=== PATIENT | female | born 1980 | race Caucasian/White ===

== ENCOUNTER → 2019-11-16 12:46 | Outpatient (CLI) | payer OTHER, SELFPAY ==
[2019-10-27 11:21] VITALS: BMI 31.3
--- NOTE | 2019-11-16 12:54 | BI_ITS ---
MAMMOGRAPHY - BILATERAL SCREENING REASON FOR EXAM: Female, 39 years old. Routine annual screening examination. PERTINENT HISTORY: Aunt with breast cancer. TECHNIQUE: Digital bilateral breast argenis (3D mammographic acquisition) in the CC and MLO projections. 2-D mediolateral oblique (MLO) and craniocaudad (CC) views of both breasts were obtained. CAD: Full Field Digital Mammography with Computer Added Detection was performed. COMPARISON: None. Baseline examination. FINDINGS: Breast Composition: The breasts are heterogeneously dense, which may obscure small masses. There are no dominant masses or suspicious calcifications. Benign appearing bilateral axillary lymph nodes. No other significant abnormalities are identified. BI/SCREEN MAMM (CAD) W/ARGENIS BILAT IMPRESSION: Negative screening mammogram. Yearly followup mammogram recommended. (A) ASSESSMENT CATEGORY: BIRADS Category 2: Benign. A letter regarding these results will be sent to the patient by the facility within 30 days. Approximately 10% of breast cancers are not detected by mammography. A normal mammogram should not delay biopsy of a clinically suspicious abnormality. [id number] Electronically Signed: Rhett Chairez, at 15:31 EST , Service support ,
--- NOTE | 2019-11-16 12:54 | US_ITS ---
STUDY: ULTRASOUND TRANSVAGINAL CLINICAL: Female, 39 years old. MENORRHAGIA TECHNIQUE: Transvaginal COMPARISON: None. FINDINGS: Normal uterine size measuring 8.2 x 1.8 x 3.8 cm in maximal craniocaudal dimension. There are no myometrial masses. Normal endometrial thickness measuring 10 mm. There are no endometrial masses, and there is no fluid in the endometrial cavity. Small endometrial calcification measures 2 mm. Normal uterine cervix. Normal right ovary, measuring 3.3 x 3.0 x 2.5 cm. There are multiple follicles without a dominant cyst. Normal left ovary, measuring 2.3 x 1.8 x 1.2 cm. There are multiple follicles without a dominant cyst. There is no free fluid in the pelvis. US/Pelvic (Non ) IMPRESSION: 1. No myometrial or endometrial masses demonstrated. 2. Punctate/2 mm endometrial calcification of doubtful significance. Electronically Signed: Miki Das MD ([place]) at 12:09 EST , Service support ,
--- NOTE | 2019-11-16 12:54 | US_ITS ---
STUDY: ULTRASOUND TRANSVAGINAL CLINICAL: Female, 39 years old. MENORRHAGIA TECHNIQUE: Transvaginal COMPARISON: None. FINDINGS: Normal uterine size measuring 8.2 x 1.8 x 3.8 cm in maximal craniocaudal dimension. There are no myometrial masses. Normal endometrial thickness measuring 10 mm. There are no endometrial masses, and there is no fluid in the endometrial cavity. Small endometrial calcification measures 2 mm. Normal uterine cervix. Normal right ovary, measuring 3.3 x 3.0 x 2.5 cm. There are multiple follicles without a dominant cyst. Normal left ovary, measuring 2.3 x 1.8 x 1.2 cm. There are multiple follicles without a dominant cyst. There is no free fluid in the pelvis. US/Transvaginal Non- IMPRESSION: 1. No myometrial or endometrial masses demonstrated. 2. Punctate/2 mm endometrial calcification of doubtful significance. Electronically Signed: Miki Das MD ([place]) at 12:09 EST , Service support ,
== END ==
PROVIDERS: Referring Provider Nurse Practitioner Women's Health; Visit Provider Nurse Practitioner Women's Health
DX: N92.0 Excessive and frequent menstruation with regular cycle (principal); Z12.31 Encounter for screening mammogram for malignant neoplasm of breast
CPT/HCPCS: 76830; 76856; 77063; 77067; 93976

== ENCOUNTER 2020-06-10 10:47 | Emergency (ER) | payer OTHER, SELFPAY ==
[2019-10-27 11:21] VITALS: BMI 31.3
[2020-06-10 10:47] VITALS: BP 151/105; PULSE 99; RESP 16; TEMP 36.6; O2SAT 95; BMI 31.3
--- NOTE | 2020-06-10 11:06 | ED.VIS.GEN ---
History of Present Illness Chief Complaint: General Illness Detail of Chief Complaint: back/neck pain Informant: Patient Onset: Yesterday - PM Context: Gradual Onset Timing: Waxes and wanes Quality: ache, spasms Location: upper back/neck, bilat Current Severity: Moderate Maximum Severity: Severe Worsened by: vomiting Relieved by: nothing Associated Symptoms: diffuse headache w/o thunderclap/sudden onset/LOC, n/v Narrative: Patient states she started having upper back and neck spasms with pain, which is a chronic common occurrence for her. Now they have developed a headache along with them, which has then made her very nauseated and she has been vomiting all morning, unable to take the muscle relaxer medication that usually helps the other symptoms. She denies any recent injury. She denies neurologic symptoms, fevers or chills, myalgias. Patient presents during the national coronavirus emergency declaration/pandemic. She denies any known contact with anyone infected with COVID-19. She denies traveling out of the immediate area recently. Past Medical History - Allergies and Home Meds Allergies/Adverse Reactions: Allergies clindamycin Allergy (Verified 06/10/20 10:47) Isabela Primary Care Physician: Care Physician,No Primary [Primary Care Provider] - Smoking Status: Never smoker Review of Systems General: Denies: Chills, Fever, Sweats Eyes: Denies: Visual changes - bilaterally, Diplopia ENT: Reports: Rhinorrhea, - - sinus pressure. Denies: Bilateral ear pain, Sore throat Cardiovascular: Denies: Chest pain, Palpitations Respiratory: Denies: Dyspnea, Cough, Dyspnea on exertion Gastrointestinal: Reports: Nausea, Vomiting. Denies: Abdominal pain, Diarrhea, Melena, Hematochezia Genitourinary: Denies: Dysuria, Hematuria, Frequency Musculoskeletal: Reports: Neck pain, Back pain. Denies: Extremity Pain Skin: Denies: Rash, Wounds Neurological: Reports: Headache. Denies: Weakness, Numbness Physical Exam Vital Signs/Narrative: Vital Signs Temp Pulse Resp BP Pulse Ox 06/10/20 10:47 97.8 F 99 16 151/105 H 95 Inital Vital Signs reviewed: Yes General: Well nourished, Well developed, No Acute Distress Head: Normocephalic, Atraumatic Eyes: Perrl, EOMI ENT: Moist mucous membranes, No rhinorrhea, TM's clear, Sinus tenderness - ethmoid and bilat maxillary. no nasal turbinate edema or purulent nasal discharge. Neck: Supple - bilat lower paraspinal c-sp / trapezius tenderness, no spinal tenderness, No lymphadenopathy, - - bilat lower paraspinal c-sp / trapezius tenderness Respiratory: No distress Abdomen: Soft, Nontender, Nondistended, Normal bowel sounds Back: Normal Inspection. Negative for: Spinal tenderness Extremities: Nontender, No edema Skin: Normal color, No rash Neurological: Alert, Oriented x3, Cranial nerves II-XII grossly intact, Normal Strength, Normal Sensation, Normal Gait Psychological: Normal affect, Normal Mood Diagnostic/Tx/Re-eval - Medical Decision Making Patient was treated with IV fluids, Reglan, Toradol, and an injection of Norflex. On reevaluation she feels much better. She is comfortable with discharge and following up as needed. I do not think she needs any emergent imaging today, nor do I feel on exam that she has bacterial sinusitis. Decongestants as needed for that, it may be contributing to her headaches though. ED Disposition - Plan for ED Patient: Disposition: Home or Assisted Living Diagnosis: Trapezius muscle spasm, Sinus congestion Instructions: ED Headache Sinus, ED Spasm Neck No Injury Referrals: Doctor,Your [STAFF PHYSICIAN] - As Needed
[2020-06-10] MEDS: Ketorolac 30 MG/ML Syringe IV (11:17)
[2020-06-10] MEDS: Orphenadrine 60 MG/2 ML Ampul IM (11:18)
[2020-06-10] MEDS: Metoclopramide 10 MG/2 ML Vial 5 MG IV (11:18)
== END 2020-06-10 12:33 | disposition home or self-care (01) ==
PROVIDERS: Emergency Provider Emergency Medicine
DX: M62.830 Muscle spasm of back (principal); R09.81 Nasal congestion
CPT/HCPCS: 96361; 96372; 96374; 96375; 99282; J7040; A4216

== ENCOUNTER → 2020-12-27 11:09 | Outpatient (CLI) | payer OTHER, SELFPAY ==
--- NOTE | 2020-12-27 11:12 | BI_ITS ---
MAMMOGRAPHY - BILATERAL SCREENING REASON FOR EXAM: Female, 40 years old. Routine annual screening examination. PERTINENT HISTORY: Aunt with breast cancer. TECHNIQUE: Digital bilateral breast argenis (3D mammographic acquisition) in the CC and MLO projections. 2-D mediolateral oblique (MLO) and craniocaudad (CC) views of both breasts were obtained. CAD: Full Field Digital Mammography with Computer Added Detection was performed. COMPARISON: Comparison is made with prior study dated 11/16/2019. FINDINGS: Breast Composition: The breasts are heterogeneously dense, which may obscure small masses. There are no dominant masses or suspicious calcifications. Stable benign-appearing bilateral axillary lymph nodes. No other significant abnormalities are identified. There has been no significant change since the prior study. BI/SCRN MAMM (CAD)W/ARGENIS BILAT IMPRESSION: Stable bilateral screening mammogram. Yearly follow-up mammogram recommended. (A) ASSESSMENT CATEGORY: BIRADS Category 2: Benign. A letter regarding these results will be sent to the patient by the facility within 30 days. Approximately 10% of breast cancers are not detected by mammography. A normal mammogram should not delay biopsy of a clinically suspicious abnormality. [id number] Electronically Signed: Rhett Chairez MD at 14:28 EST , Service support ,
== END ==
PROVIDERS: Referring Provider Nurse Practitioner Women's Health; Visit Provider Nurse Practitioner Women's Health
DX: Z12.31 Encounter for screening mammogram for malignant neoplasm of breast (principal)
CPT/HCPCS: 77063; 77067

== ENCOUNTER 2021-05-08 16:03 | Emergency (ER) | payer OTHER, SELFPAY ==
[2021-04-18 15:14] VITALS: BMI 32.6
[2021-05-08 16:04] VITALS: BP 154/107; PULSE 91; RESP 16; TEMP 36.7; O2SAT 98; BMI 34.3
[2021-05-08 16:27] LABS: Mucous, Urine 0 SEEN /hpf (<or=2+)
[2021-05-08 16:37] LABS: Color, Urine Amber (Yellow); Glucose, Dipstick Normal (Normal); Ketone-Dipstick 5 mg/dl (Negative); Leukocyte Esterase-Dipstick 100 /ul (Negative); Nitrite-Dipstick Negative (Negative); Occult Blood-Urine 250 /ul (Negative); Protein-Dipstick 30 mg/dl (Negative); Specific Gravity, Urine 1.025 (1.002-1.030); Urine Bilirubin Dipstick Negative (Negative); Urine Clarity Cloudy (Clear); Urine Urobilinogen 1 mg/dl (Normal)
[2021-05-08 16:47] LABS: Red Blood Cells-Urine > 100 SEEN /hpf (0-5)
[2021-05-08 16:48] LABS: Bacteria RARE /hpf (None Seen); Squamous Epithelial Cells - UA 0-5 SEEN /hpf (5-10); White Blood Cells 0-5 SEEN /hpf (0-5)
--- NOTE | 2021-05-08 17:08 | EDS_ITS ---
HPI HPI - Female History of Present Illness Chief Complaint: Flank Pain Narrative Narrative: 40-year-old female presenting with left flank pain. She states that initially started in the left lower flank and radiated around to the front. Now she feels more pressure in the front. She states he has urinary frequency and mild dysuria. She does not note hematuria. She is currently on her menstrual cycle as well. She does not believe she is . She states she also feels as if she needs to defecate. She did have a couple of episodes of vomiting. She states he vomited in the ED as well. Patient is not had a fever. [facility] Medical History Asthma Back pain Dysmenorrhea Headache, menstrual migraine History of pneumonia Preeclampsia Seasonal allergies Spinal headache Toxemia of Vitamin deficiency Home Medications albuterol sulfate 1 - 2 puff INHALATION Q4H PRN PRN #1 inhaler 11/27/16 [Rx Last Taken Unknown] norethindrone (contraceptive) 0.35 mg tablet 0.35 mg PO QDAY #84 tab 01/11/21 [Rx Last Taken Unknown] Allergy/generic PO 04/18/21 [History Last Taken Unknown] cholecalciferol (vitamin D3) 25 mcg (1,000 unit) capsule 25 mcg PO DAILY 04/18/21 [History Last Taken Unknown] sumatriptan succinate 25 mg tablet See Rx Instructions PO .COMPLEX #10 tab 04/30/21 [Rx Last Taken Unknown] ondansetron 8 mg PO Q8H PRN PRN #20 tab 05/08/21 [Rx Last Taken Unknown] oxycodone-acetaminophen [Percocet] 1 tab PO Q6H PRN 3 Days #12 tab 05/08/21 [Rx Last Taken Unknown] Allergy/AdvReac Type Severity Reaction Status Date / Time clindamycin Allergy Hives Verified 05/08/21 16:04 Family History Grandmother Lung disease Arthritis Father Diabetes Anxiety Hypertension Hyperlipemia Mother Parkinsons disease Anxiety Depression Hypertension Hyperlipemia Aunt Breast cancer Grandfather Cancer Brother Hypertension Surgical History H/O hernia repair H/O LEEP H/O oral surgery H/O: History of colposcopy L shoulder surgery Social History household members: family housing: [facility] number of children: 1 current occupational status: employed current occupation: coach driver history of recent travel: Yes sexually active: No Smoking Status: Never smoker alcohol intake: never substance use type: does not use well-balanced diet: about half the time caffeine: No what type of physical activity do you participate in: none seatbelt use: always do you feel safe at home: Yes ROS ROS ED Constitutional Constitutional ED: Denies chills, fever(s) or subjective Eyes Eyes: Denies change in vision ENT ENT ED: Denies rhinorrhea or sore throat Cardiovascular Cardiovascular: Denies chest pain or palpitations Respiratory/Chest Respiratory/Chest: Denies cough or dyspnea Gastrointestinal Gastrointestinal: Reports abdominal pain, constipation, nausea and vomiting Genitourinary Genitourinary ED: Reports dysuria and urinary frequency Musculoskeletal Musculoskeletal: Denies arthralgias or myalgias Integumentary Denies abscess or rash Neurologic Neurologic: Denies headache(s), paresthesias or weakness EXAM Physical Exam Const Vital Signs: 05/08/21 16:04 05/08/21 18:26 Temperature 98.0 F Temperature Source Temporal Pulse Rate 91 90 Respiratory Rate 16 18 Blood Pressure 154/107 H 136/87 H Blood Pressure Mean 122 103 Pulse Ox 98 100 Oxygen Delivery Method Room Air Room Air Positive well nourished General Appearance ED: NAD HEENT Reports moist mucous membranes Negative for trauma Eyes PERRL and EOMs intact bilaterally Resp normal respiratory effort and clear to auscultation bilaterally Cardio regular rate and regular rhythm GI GI Narrative: Tenderness to palpation left lower quadrant. No CVA tenderness on the left. Extremity normal to inspection General Extremety ED: Negative for edema General Extremity: Negative for edema Neuro oriented x3 Sensorium / Orientation: alert Psych mental status grossly normal Skin no rashes or lesions noted MDM MDM MDM Narrative Medical decision making narrative: Patient presenting with left flank pain. She does not have CVA tenderness but it sounds like she had posterior left flank pain previously. Urinalysis shows hematuria however patient is currently on her menstrual cycle. Serum is negative. Patient has no leukocytosis. H&H are stable. Creatinine is slightly bumped at 1.06 however this is not too significant. Her electrolytes are normal. CT of the abdomen pelvis with out IV contrast shows a left UVJ stone. Patient was treated with morphine, Zofran, Toradol in the ED and she does have some improvement in her pain. She is given oxycodone prior to discharge. She discharged home with Percocet and Zofran. She is given follow-up with Dr. Tucker. Patient given return precautions. She stable for discharge at this time. Impression 1. 3 mm UVJ stone 2. Left-sided hydronephrosis Lab Data Attestation: I reviewed the patient's lab results. Labs: Laboratory Results - last 24 hr 05/08/21 05/08/21 05/08/21 16:21 17:31 17:31 WBC 9.5 RBC 4.99 Hgb 13.7 Hct 41.9 MCV 84.0 MCH 27.5 MCHC 32.7 RDW Std Deviation 41.0 RDW Coeff of Jamilah 13.4 Plt Count 292 MPV 9.5 Immature Gran % (Auto) 0.300 Neut % (Auto) 75.0 H Lymph % (Auto) 15.2 L [place] % (Auto) 7.2 Eos % (Auto) 1.7 Baso % (Auto) 0.6 Absolute Neuts (auto) 7.2 Absolute Lymphs (auto) 1.45 Nucleated RBC % 0 Sodium Potassium Chloride Carbon Dioxide Anion Gap BUN Creatinine Estim Creat Clear Calc Est GFR (MDRD) Af Amer Est GFR (MDRD) Non-Af BUN/Creatinine Ratio Glucose Calcium Serum , Qual NEGATIVE Urine Color Joie Urine Clarity Cloudy Urine pH 5.0 Ur Specific [place] 1.025 Urine Protein 30 H Urine Glucose (UA) Normal Urine Ketones 5 H Urine Occult Blood 250 H Urine Nitrite Negative Urine Bilirubin Negative Urine Urobilinogen 1 H Ur Leukocyte Esterase 100 H Urine RBC > 100 SEEN Urine WBC 0-5 SEEN Ur Squamous Epith Cells 0-5 SEEN Urine Bacteria RARE Urine Mucus 0 SEEN 05/08/21 17:31 WBC RBC Hgb Hct MCV MCH MCHC RDW Std Deviation RDW Coeff of Jamilah Plt Count MPV Immature Gran % (Auto) Neut % (Auto) Lymph % (Auto) [place] % (Auto) Eos % (Auto) Baso % (Auto) Absolute Neuts (auto) Absolute Lymphs (auto) Nucleated RBC % Sodium 139 Potassium 3.6 Chloride 108 H Carbon Dioxide 26.0 Anion Gap 5 BUN 15 Creatinine 1.06 H Estim Creat Clear Calc 67.92 Est GFR (MDRD) Af Amer 73 Est GFR (MDRD) Non-Af 61 BUN/Creatinine Ratio 14.2 Glucose 103 Calcium 8.7 Serum , Qual Urine Color Urine Clarity Urine pH Ur Specific [place] Urine Protein Urine Glucose (UA) Urine Ketones Urine Occult Blood Urine Nitrite Urine Bilirubin Urine Urobilinogen Ur Leukocyte Esterase Urine RBC Urine WBC Ur Squamous Epith Cells Urine Bacteria Urine Mucus Radiography Diagnostic Testing: Radiology Impression Abdomen/Pelvis CT 05/08/21 18:25 IMPRESSION: Obstructing 3 mm stone in the left ureterovesical junction with associated mild left hydroureteronephrosis. Electronically Signed: Thee Ge MD at 18:58 EDT Tel , Service support , Discharge Plan Triage Chief Complaint: Flank Pain Other Complaint: Abd Pain ED Provider: Efrain Winters Dx/Rx/DC Orders Instructions: ED Kidney Stone w/ Colic Prescriptions: New ondansetron 4 mg tablet,disintegrating 8 mg PO Q8H PRN PRN (Reason: Nausea) Qty: 20 RF: 0 oxycodone-acetaminophen [Percocet] 5-325 mg tablet 1 tab PO Q6H PRN (Reason: pain) 3 Days Qty: 12 RF: 0 No Action norethindrone (contraceptive) [Cristina] 0.35 mg tablet 0.35 mg PO QDAY Qty: 84 RF: 4 cholecalciferol (vitamin D3) 25 mcg (1,000 unit) capsule 25 mcg PO DAILY RF: 0 Allergy/generic PO RF: 0 albuterol sulfate 1 INHALER inhaler 1 - 2 puff INHALATION Q4H PRN PRN (Reason: Wheezing) Qty: 1 RF: 0 sumatriptan succinate [Imitrex] 25 mg tablet See Rx Instructions PO .COMPLEX Qty: 10 RF: 0 Primary Care Provider: Nick Martin Referrals: Ruth Santana MD [STAFF PHYSICIAN] - As soon as possible Nick Martin MD [Primary Care Provider] - Disposition Disposition: Home, Self Care
[2021-05-08 17:59] LABS: Absolute Lymphocyte Count 1.45 X10^3/uL (0.83-4.51); Absolute Neutrophil Count 7.2 X10^3/uL (2.0-7.7); Basophil# 0.06 X10^3/uL; Basophil% 0.6 % (0-1); Eosinophil# 0.16 X10^3/uL; Eosinophils% 1.7 % (0-5); Hematocrit 41.9 % (37-47); Hemoglobin 13.7 g/dL (12.0-15.0); Lymphocyte # 1.45 X10^3/ul (0.83-4.51); Lymphocyte % 15.2 % (19-41); Mean Corp Hgb Conc 32.7 g/dL (32-36); Mean Corpuscular Hgb 27.5 pg (27.0-32.0); Mean Platelet Vol. 9.5 fl (6.2-12.0); Monocyte# 0.69 X10^3/uL; Monocyte% 7.2 % (0-10); NRBC Flagged by Analyzer 0 % (0-5); Neutrophil # 7.15 X10^3/uL (2.7-7.7); Platelet Count 292 K/mm3 (150-450); RBC Distribution Width CV 13.4 % (11.6-14.6); Red Blood Count 4.99 M/mm3 (4.2-5.4); White Blood Count 9.5 K/mm3 (4.4-11.0)
[2021-05-08 18:03] LABS: Anion Gap 5 (5-15); BUN 15 mg/dL (7-18); BUN/Creat Ratio 14.2 RATIO (10-20); Calcium,Total 8.7 mg/dL (8.5-10.1); Chloride 108 mmol/L (98-107); Creatinine, Serum 1.06 mg/dL (0.55-1.02); EST Glomerular Filtration Rate 61 mL/min (>60); Est Glom Filt Rate - Afr Amer 73 mL/min (>60); Estimated Creatinine Clearance 67.92 ml/min; Glucose 103 mg/dL (74-106); Potassium 3.6 mmol/L (3.5-5.1); Sodium Level 139 mmol/L (136-145)
[2021-05-08 18:25] LABS: Internal QC Validated? YES +Cl - CLEAR BKGD; Pregnancy, Serum, hCG Quali. NEGATIVE Negative
--- NOTE | 2021-05-08 18:25 | CT_ITS ---
INDICATION: flank pain EXAMINATION: CT Abdomen And Pelvis W/O Contrast Injection TECHNIQUE: Helically acquired images were obtained of the abdomen and pelvis without the use of IV contrast. A radiation dose optimization technique was used for this scan. Oral contrast: None. COMPARISON: None FINDINGS: Evaluation of the solid organs and vascular structures is limited without intravenous contrast. Visualized lung bases: Unremarkable Liver: Unremarkable Gallbladder: Contracted. Spleen: Unremarkable Pancreas: Unremarkable Adrenal Glands: Unremarkable Kidneys: Obstructing 3 mm stone in the left ureterovesical junction with associated mild left hydroureteronephrosis. Vasculature: Unremarkable GI Tract: Unremarkable Lymphadenopathy: None Peritoneum: No ascites. Bladder: Unremarkable Reproductive organs: Unremarkable Bones/Soft tissues: Mild scattered degenerative changes of the visualized spine. CT/Abdomen/Pelvis without Cont IMPRESSION: Obstructing 3 mm stone in the left ureterovesical junction with associated mild left hydroureteronephrosis. Electronically Signed: Thee Ge MD at 18:58 EDT Tel , Service support ,
[2021-05-08 18:26] VITALS: BP 136/87; PULSE 90; RESP 18; O2SAT 100
[2021-05-08] MEDS: Morphine 4 MG/ML Syringe IV (19:16)
[2021-05-08] MEDS: Ondansetron 4 MG/2 ML Vial IV ×2 (19:22→21:03)
[2021-05-08] MEDS: oxyCODONE 5 MG Tablet PO (21:03)
[2021-05-08 21:20] VITALS: RESP 14
== END 2021-05-08 21:22 | disposition home or self-care (01) ==
PROVIDERS: Emergency Provider Student in an Organized Health Care Education/Training Program; PCP Internal Medicine
DX: N13.2 Hydronephrosis with renal and ureteral calculous obstruction (principal); J45.909 Unspecified asthma, uncomplicated; Z79.51 Long term (current) use of inhaled steroids
CPT/HCPCS: 74176; 80048; 81001; 84703; 85025; 96365; 96366; 96375; 96376; 99284; J7040; J7050; A4216; J2405

== ENCOUNTER → 2023-05-27 | Outpatient (CLI) | payer OTHER, SELFPAY ==
[2023-05-27 12:01] LABS: Absolute Lymphocyte Count 1.69 X10^3/uL (0.83-4.51); Absolute Neutrophil Count 5.4 X10^3/uL (2.0-7.7); Basophil# 0.07 X10^3/uL; Basophil% 0.9 % (0-1); Eosinophil# 0.16 X10^3/uL; Eosinophils% 2.1 % (0-5); Hematocrit 37.7 % (37-47); Hemoglobin 12.3 g/dL (12.0-15.0); Lymphocyte # 1.69 X10^3/ul (0.83-4.51); Lymphocyte % 21.7 % (19-41); Mean Corp Hgb Conc 32.6 g/dL (32-36); Mean Corpuscular Hgb 28.7 pg (27.0-32.0); Mean Corpuscular Volume 88.1 fL (81-99); Mean Platelet Vol. 9.6 fl (6.2-12.0); Monocyte# 0.48 X10^3/uL; Monocyte% 6.2 % (0-10); NRBC Flagged by Analyzer 0 % (0-5); Neutrophil # 5.35 X10^3/uL (2.7-7.7); Neutrophil % 68.6 % (47-70); Platelet Count 261 K/mm3 (150-450); RBC Distribution Width CV 13.1 % (11.6-14.6); RBC Distribution Width SD 41.5 fl (35.1-43.9); Red Blood Count 4.28 M/mm3 (4.2-5.4); White Blood Count 7.8 K/mm3 (4.4-11.0)
[2023-05-27 12:17] LABS: Thyroid Stim Hormone (TSH) 1.37 uIU/mL (0.358-3.74)
[2023-05-30 16:09] LABS: HPV APTIMA, High Risk Negative (Negative)
== END | disposition home or self-care (01) ==
PROVIDERS: Referring Provider Obstetrics & Gynecology; Visit Provider Obstetrics & Gynecology
DX: N93.9 Abnormal uterine and vaginal bleeding, unspecified (principal); Z12.4 Encounter for screening for malignant neoplasm of cervix
CPT/HCPCS: 36415; 84443; 85025; 87624; 88175; G0145

== ENCOUNTER → 2023-06-10 | Outpatient (CLI) | payer OTHER, SELFPAY ==
--- NOTE | 2023-06-10 12:31 | BI_ITS ---
MAMMOGRAPHY - BILATERAL SCREENING REASON FOR EXAM: Female, 42 years old. Routine annual screening examination. PERTINENT HISTORY: Aunt with breast cancer. TECHNIQUE: Digital bilateral breast argenis (3D mammographic acquisition) in the CC and MLO projections. 2-D mediolateral oblique (MLO) and craniocaudad (CC) views of both breasts were obtained. CAD: Full Field Digital Mammography with Computer Added Detection was performed. COMPARISON: Comparison is made with prior study of December 27, 2020 and November 16, 2019. FINDINGS: Breast Composition: The breasts are heterogeneously dense, which may obscure small masses. There are no dominant masses or suspicious calcifications. Stable benign appearing bilateral axillary lymph nodes. No other significant abnormalities are identified. There has been no significant change since the prior study. BI/SCRN MAMM (CAD)W/ARGENIS BILAT IMPRESSION: Stable bilateral screening mammogram. Yearly follow-up mammogram recommended. (A) ASSESSMENT CATEGORY: BIRADS Category 2: Benign. A letter regarding these results will be sent to the patient by the facility within 30 days. Approximately 10% of breast cancers are not detected by mammography. A normal mammogram should not delay biopsy of a clinically suspicious abnormality. [id number] Electronically Signed: Rhett Chairez MD at 13:58 EDT ,
--- NOTE | 2023-06-10 12:31 | US_ITS ---
STUDY: ULTRASOUND OF THE FEMALE PELVIS - COMPLETE REASON FOR EXAM: Female, 42 years old. AUB LMP: TECHNIQUE: Transabdominal and Transvaginal TECHNICAL QUALITY: Adequate. COMPARISON: CT scan 05/08/2021. FINDINGS: The uterus is anteverted and is in a midline position. The uterus measures 10.1 x 5.7 x 5.4 cm. There is a Nabothian cyst of the cervix. The endometrium measures 5 mm in thickness, and is hyperechoic. There is no demonstrated endometrial mass. There is no demonstrated myometrial mass. I.U.D. - The patient does not have an I.U.D. The right ovary is visualized. The right ovary measures 2.6 x 1.9 x 1.0 cm. There is no right ovarian cyst or ovarian mass. There is no visualized right adnexal mass or complex lesion. There is normal arterial and normal venous vascularity. The left ovary is visualized. The left ovary measures 2.3 x 1.8 x 1.3 cm. There is no left ovarian cyst or ovarian mass. There is no visualized left adnexal mass or complex lesion. There is normal arterial and normal venous vascularity. There is no fluid in the cul-de-sac. The pre void volume of the bladder was 414 ml. US/Pelvic (Non ) IMPRESSION: No definite acute or significant abnormality seen. Electronically Signed: Quincy Penny MD at 19:01 EDT ,
== END | disposition home or self-care (01) ==
PROVIDERS: Referring Provider Obstetrics & Gynecology; Visit Provider Obstetrics & Gynecology
DX: Z12.31 Encounter for screening mammogram for malignant neoplasm of breast (principal); Z80.3 Family history of malignant neoplasm of breast; N93.9 Abnormal uterine and vaginal bleeding, unspecified
CPT/HCPCS: 76830; 76856; 77063; 77067

== ENCOUNTER → 2024-02-16 | Outpatient (CLI) | payer OTHER, SELFPAY ==
[2024-02-16 10:36] LABS: Hematocrit 40.5 % (37-47); Hemoglobin 13.8 g/dL (12.0-15.0); Mean Corp Hgb Conc 34.1 g/dL (32-36); Mean Corpuscular Volume 85.1 fL (81-99); Mean Platelet Vol. 9.5 fl (6.2-12.0); Platelet Count 254 K/mm3 (150-450); RBC Distribution Width CV 13.2 % (11.6-14.6); RBC Distribution Width SD 40.8 fl (35.1-43.9); Red Blood Count 4.76 M/mm3 (4.2-5.4); White Blood Count 7.8 K/mm3 (4.4-11.0)
[2024-02-16 10:42] LABS: Magnesium 2.2 mg/dL (1.6-2.6)
== END | disposition home or self-care (01) ==
PROVIDERS: Anesthesiology; Referring Provider Obstetrics & Gynecology; Visit Provider Obstetrics & Gynecology
DX: Z01.818 Encounter for other preprocedural examination (principal)
CPT/HCPCS: 36415; 83735; 85027; 86850; 86900; 86901

== ENCOUNTER 2024-02-24 06:00 | Day surgery (SDC) | payer OTHER, SELFPAY ==
[2024-02-24] VITALS (15 sets, daily range): BP systolic 111–147; BP diastolic 67–93; PULSE 78–100; RESP 12–16; TEMP 36.2–36.9; O2SAT 93–100; BMI 33.3
--- NOTE | 2024-02-24 05:59 | PCM.HP.BLA ---
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 Is patient in pain?: No Allergies clindamycin Allergy (Verified 02/16/24 09:21) Hives Medications albuterol sulfate 90 mcg/actuation aerosol inhaler 1 - 2 puff inhalation Q4H PRN PRN Wheezing ##1 11/27/16 [Rx Confirmed 02/16/24] cholecalciferol (vitamin D3) 25 mcg (1,000 unit) capsule 25 mcg PO DAILY 04/18/21 [History Confirmed 02/16/24] ferrous sulfate 325 mg (65 mg iron) tablet 325 mg PO DAILY 05/27/23 [History Confirmed 02/16/24] vitamin B complex (B Complex-Vitamin B12 tablet) 1 tab PO DAILY 07/03/23 [History Confirmed 02/16/24] fexofenadine 60 mg tablet (Sosa Allergy) 120 mg PO DAILY 02/10/24 [History Confirmed 02/16/24] misoprostol 200 mcg tablet (Cytotec) 200 mcg PO .complex #2 tabs 02/16/24 [Rx Confirmed 02/16/24] Is last menstrual period known: No Post menopausal: No Patient : No : No PFSH Medical History (Updated 02/10/24 @ 08:34 by Whit Diego) Asthma Back pain Dysmenorrhea Headache, menstrual migraine History of pneumonia Low iron Migraine headache Non-smoker PONV (postoperative nausea and vomiting) Preeclampsia Seasonal allergies Shortness of breath on exertion Spinal headache Toxemia of Vitamin deficiency Wears contact lenses Wears glasses Surgical History H/O hernia repair H/O LEEP H/O oral surgery H/O: History of colposcopy L shoulder surgery Family History Grandmother Lung disease ArthritisFather Diabetes Anxiety Hypertension HyperlipemiaMother Parkinsons disease Anxiety Depression Hypertension HyperlipemiaAunt Breast cancerGrandfather CancerBrother Hypertension Social History household members: family housing: condominium number of children: 1 current occupational status: employed current occupation: personal coach history of recent travel: Yes sexually active: No Smoking Status: Never smoker alcohol intake: never substance use type: does not use well-balanced diet: about half the time caffeine: No what type of physical activity do you participate in: none seatbelt use: always do you feel safe at home: Yes HPI LAVHBS Details: NICK HEALY is a 43 year old who presents for preop visit. she has been having persite heavy irregualr painful menses, can't take hormones due to migraines and failed lysteda. she failed to have an emb due to cervical stenosis, risk of precancerous/cancerous changes discussed. Female Reproductive History Menopausal Symptoms: No night sweats History 1 Elective abortions Hx Para 1 Spontaneous abortions Hx # Term Pregnancies 1 Ectopic pregnancies Hx # Pregnancies Multiple births # of living children 1 Past Pregnancies Del. Date Name GA/Weeks Outcome Route Bth Weight [facility] Main 42 live - full term 9'9 Female 12hrs none [facility] tizzano ROS Const Constitutional: Denies fatigue, night sweats, weight gain or weight loss ENT ENT: Reports system reviewed and no additional complaints, except as documented Cardio Card: Denies chest pain Resp Resp: Denies cough or dyspnea GI GI: Reports as per HPI; Denies abdominal pain, constipation, nausea or vomiting : Denies nipple discharge, urinary frequency, urinary incontinence, urinary hesitancy, urinary urgency, vaginal discharge, vaginal dryness, vaginal odor or vaginal pruritus Musc Musc: Denies arthralgias, back pain or muscle weakness Skin Skin/Breast: Denies alopecia, change in hair, dry skin, breast mass, breast pain, breast skin changes or nipple discharge Neuro Neuro: Reports system reviewed and no additional complaints, except as documented Psych Psych: Reports system reviewed and no additional complaints, except as documented Endo Endo: Denies cold intolerance, excessive sweating, heat intolerance or polydipsia Jose/Lymph Hematologic/Lymphatic: Denies easy bleeding, Denies easy bruising and Denies lymphadenopathy Exam Const General: cooperative, healthy appearing, comfortable and no acute distress Orientation: alert HENMT Head: normal to inspection and normocephalic Ears: hearing grossly normal bilaterally and external ears normal Nose: external nose normal and nares normal Face and sinus: normal facial exam Neck Neck: normal visual inspection and no lymphadenopathy Thyroid: thyroid normal Chest Chest palpation & inspection: normal inspection of the chest Resp Effort & Inspection: normal respiratory effort Auscultation: clear to auscultation bilaterally Cardio Rate: regular rate Rhythm: regular rhythm Heart Sounds: S1 normal and S2 normal GI Inspection: normal to inspection and non-distended Palpation: soft and no hepatosplenomegaly Musc Other: gross motor intact no deficits, full bilateral strength Skin General: no rashes or lesions noted Neuro General: patient alert, patient awake, moves all extremities and no focal motor deficits Motor: muscle tone normal throughout Extrem General: normal to inspection and no pedal edema Psych Appearance: grossly normal Mental Status: mental status grossly normal Affect: normal affect Speech and Movement: speech and movement normal Coding Level of Care Code No Charge Diagnoses Abnormal uterine bleeding N93.9 Cervical stenosis (uterine cervix) N88.2 Assessment and Plan Assessment and Plan (1) Abnormal uterine bleeding: Status: Acute Comment: reviewed cbc tsh US, trial lysteda. not hormonal candidate due to migraines, failed IUD in past, discussed ablation versus LAVHBS. plan LAVHBS in january or february (2) Cervical stenosis (uterine cervix): Status: Acute Comment: unable to perform EMB Medications: New misoprostol (Cytotec) take the night before and two hours prior to the procedure 2 tabs 1RF Plan After discussing the patient's diagnosis and treatment plan options, patient wishes to proceed with surgical management. I have discussed with the patient the risks, benefits, and alternatives of the procedure which include but are not limited to risks of anesthesia, bleeding, infection, possible damage to bowel, bladder, or surrounding vasculature which could lead to additional surgery to evaluate any complications. Patient agrees to procedure and wishes to proceed. ACOG/uptodate references given for additional information regarding procedure. UPDATE- I have seen the patient and performed any clinically relevant updates to the history and physical exam. Leandra Fernandez MD
[2024-02-24 06:22] LABS: Internal QC Validated? YES +Cl - CLEAR BKGD; Pregnancy, Urine Negative Negative
[2024-02-24] MEDS: Celecoxib 200 MG Capsule 400 MG PO (06:46)
[2024-02-24] MEDS: Scopolamine 1mg/72hr Patch 1 PATCH TD (06:46)
[2024-02-24] MEDS: Gabapentin 600 MG Tablet PO (06:46)
[2024-02-24] MEDS: Acetaminophen 500 MG Tablet 1000 MG PO ×2 (06:46→15:02)
[2024-02-24] MEDS: Phenazopyridine 95 MG Tablet 190 MG PO (06:48)
[2024-02-24] MEDS: Enoxaparin 40 MG/0.4 ML Syringe SC (06:51)
[2024-02-24] MEDS: dexAMETHasone 4 MG/ML Vial 8 MG IV (06:51)
[2024-02-24] MEDS: Magnesium 1 GM over 15 mins IV (07:04)
[2024-02-24 07:13] LABS: Bedside Glucose 114 mg/dL (74-106)
--- NOTE | 2024-02-24 08:15 | HYST_PTH ---
PATIENT: NICK HEALY LOC: [facility] [place][id number] AGE/SX: 43/F ROOM: RE02/24/[address]: Dr. Leandra Fernandez MD : 1980 BED: DIS: 02/24/2024 SPEC #: [id number] RECD: 02/24/24 13:11 STATUS: DAVON LANTIGUA #: [id number] MIKHAIL: 02/24/24 08:[address]: Leandra Fernandez DEPT: SURGICAL PATHOLOGY RECD BY: Natali Nava ENTERED: 02/25/24 08:51 SP TYPE: HYSTERECT OTHR DR: Rajeev Garrison PA-C Tissues: Uterus, NOS Procedures: Surgery Specimen Level V HEADER OPERATION: ERAS, hysterectomy, LAVH, bilateral salpingectomy PRE-OP DIAGNOSIS: Abnormal uterine bleeding TISSUE SUBMITTED: Uterus, cervix, bilateral fallopian tubes MICROSCOPIC DIAGNOSIS Uterus, cervix, bilateral fallopian tubes, hysterectomy and bilateral salpingectomy: Cervix - Chronic cystic cervicitis. Endometrium - weakly proliferative endometrium. Myometrium - adenomyosis. - A minute intramural leiomyoma (0.3cm in greatest dimension). Bilateral fallopian tubes- no pathologic diagnosis. JOSE/ 02/26/2024 MICROSCOPIC DESCRIPTION Slides are reviewed. GROSS DESCRIPTION Received in fixative is one container labeled with the patient's name and designated uterus, cervix, bilateral fallopian tubes. The specimen consists of a hysterectomy specimen consisting of uterus, cervix and attached bilateral fallopian tubes. The uterus with cervix weighs 120 gm and measures 11.0 x 7.0 x 5.0 cm. The serosal surface is barry glistening. The ectocervical mucosa is unremarkable. The external os is oval in contour. The endocervical canal measures 3.5 cm in length and the endocervical mucosa is barry glistening and unremarkable. Sections of the cervix reveal multiple cysts filled with mucoid material. The triangular endometrial cavity measures 5.0cm in length and 2.0 cm in width. The endometrial cavity contains small amount of blood clots. The endometrium is barry, glistening without any mass lesions and measures 0.1 cm in thickness. Sections of the uterine wall do not reveal any mass lesion and measures 2.4cm in thickness. Right fallopian tube measures 6.5cm in length and up to 1.2cm in diameter. Fimbrial end is identified. Sections reveal unremarkable cut surfaces. The left fallopian tube is similar appearance to the right and measures 7.5cm in length and up to 1.1cm in diameter. Driver Helper sections are submitted in eight cassettes as follows: 1 - anterior cervix, 2 - posterior cervix, 3 & 4 - anterior uterine wall, 5 & 6 - posterior uterine wall, 7- right fallopian tube, 8- left fallopian tube JOSE: 02/25/2024 TC:5 CPT: 86710
[2024-02-24] MEDS: Cefazolin 2 GM in 0.9% Normal Saline (100mL Bag) 100 ML IV (08:23)
--- NOTE | 2024-02-24 08:24 | OP.PCM_ITS ---
Problems Associated Problem List Diagnoses (1) Cervical stenosis (uterine cervix): (2) Abnormal uterine bleeding: (3) Migraine without aura and without status migrainosus, not intractable: (4) Dysmenorrhea: (5) S/P laparoscopic assisted vaginal hysterectomy (LAVH): Report of Operation Date of Procedure: 02/24/24 Pre-Operative Diagnosis: see A/P Post-Operative Diagnosis: same Surgery/Procedure Performed:: LAVHBS cystoscopy extensive lysis of adhesion Description of Surgical Findings:: desnse vesicouterine adhesions fibrous parametrial tissue Surgeon: Leandra Fernandez extruding department supervisor: Oren Engle Type of Anesthesia: General Specimen's removed: uterus, tubes Drains: montoya Estimated Blood Loss (mL): 400 Fluids Replaced: crystalloid Description of Procedure: Patient received preoperative antibiotics and SCDs were on preoperatively. Patient was taken back to the operating room and placed in the dorsal lithotomy position. General anesthesia was induced and patient was prepped and draped in normal sterile fashion. Uterine manipulator was placed inside the uterus and Montoya catheter placed in the bladder. The umbilicus was grasped with towel clamps and an intraumbilical incision was made after injecting with quarter percent Marcaine and a Veress needle entered into the abdomen confirmed to be intra-abdominal with a low opening pressure. Abdomen was insufflated with CO2 gas and the Veress needle removed and the 5 mm trocar was placed under direct visualization without complication. Right and left lower quadrants were transilluminated and injected with quarter percent Marcaine and 5 mm ports placed under direct visualization. Pelvis was well visualized see operative findings for additional information. Bilateral fallopian tubes were identified and transected with the LigaSure device across the mesosalpinx to the level of the utero-ovarian ligament which was also transected with the LigaSure device. Omental to anterior abdominal wall adhesions were taken down as well as sigmoid colon adhesions. Dense vesicouterine adhesions were then dissected out first with the LigaSure device followed by monopolar scissors and then hydrodissectio n. Is very difficult to see the planes of the tissues due to the dense adhesions. The fibrous tissue around the parametrial region also made it difficult for dissection and to identify the vessels but eventually the uterine arteries were transected bilaterally with good visualization of the bladder and the ureters were seen to be inferior lateral to the operative area. Due to the dense bladder adhesions and extensive adhesiolysis that took at least 60 minutes of operative time to perform, a cystoscopy was then performed and bilateral ureteral strong spray was noted and the bladder was noted to have no abnormality or lesions seen. Montoya catheter was replaced and then attention paid to the abdominal portion of the procedure again. Attention was then paid to the vaginal portion of the procedure and the cervix was grasped with Zee clamps and circumferentially injected with dilute vasopressin. A circumferential incision was made and the vaginal mucosa was mobilized off posteriorly and the cul-de-sac entered into sharply and a longneck speculum placed. The anterior cul-de-sac was then identified and entered into sharply. The uterosacral ligaments were clamped cut and suture ligated with 0 Monocryl bilaterally followed by the cardinal ligaments which were clamped cut and suture ligated bilaterally with 0 Monocryl. The uterus serially descended and was removed without difficulty. Pelvic sidewall pedicles were checked and noted to have excellent hemostasis. The vaginal mucosa was reapproximated incorporating the posterior peritoneum. This was reapproximated using 0 Vicryl [id number] sutures. Excellent hemostasis was noted. The pelvis and cul-de-sac were well visualized and no significant active bleeding noted but some raw areas were seen on the peritoneum and therefore hemoblast was applied. Pressure was taken down and the areas visualized and noted of excellent hemostasis. All ports were removed under direct visualization without complication and the abdomen was desufflated of air. The instruments were removed from the abdomen and the vaginal sweep was negative. Port sites on the abdomen were closed with 4-0 Monocryl interrupted sutures and Steri's and windows were applied. She was awoken and taken recovery in stable condition. Grafts/Implants Used: none Procedure Start Time: 08:41 Procedure Stop Time: 11:20 Complications none Admit VTE Documentation VTE Present on Admission: No VTE Mechan Device Prophylaxis: SCD's VTE Pharm Prophylaxis ordered?: Yes Procedures Urinary/Genital 52xxx-[id number]: 22770 LAVH+BS/O <250gr Uterus
--- NOTE | 2024-02-24 08:27 | DCINST_ITS ---
Discharge Instructions Diet Discharge Diet: No restrictions Activity May resume sexual activity in: 6 weeks Weight Bearing Status: Full weight bearing Dressing / Incision Call your doctor if your incision/area has: Continuous Slow Oozing, Sudden Increased Bleeding, Increased Pain/ Swelling, Increased Redness and Foul Smelling Discharge Call your doctor if you observe: Fever of 101 or Higher, Using more than 1 pad per hour, Shortness of breath, Chest pain and Uncontrolled pain Suture Line Care: Avoid Pulling/Pushing and Avoid Pinching/Bending Remove Dressing in: 1 week (if present) Cleanse incision/area with: Soap & Water and Keep Dressing Clean & Dry Follow Up Care Please Follow Up With: Leandra Fernandez MD When: Call to make an appointment with your doctor for a postop visit in 2 and 6 weeks. Test Results: Test results from this visit will be discussed in further detail at your follow- up appointment, if applicable. Discharge Plan Admission Attending Provider: Leandra Fernandez Primary Care Provider: Rajeev Garrison Discharge Orders/Prescriptions Prescriptions: No Action cholecalciferol (vitamin D3) 25 mcg (1,000 unit) capsule 25 mcg PO DAILY ferrous sulfate 325 mg (65 mg iron) tablet 325 mg PO DAILY vitamin B complex [B Complex-Vitamin B12] Tablet 1 tab PO DAILY misoprostol [Cytotec] 200 mcg tablet 200 mcg PO .complex Qty: 2 1RF Rx Instructions: take the night before and two hours prior to the procedure albuterol sulfate 1 INHALER inhaler 1 - 2 puff INHALATION Q4H PRN PRN (Reason: Wheezing) Qty: 1 0RF fexofenadine [Sosa Allergy] 60 mg tablet 120 mg PO DAILY Other Ambulatory Orders: ,Urine (Routine) Timeframe: 20240224 Facility: [facility] - Location: Laboratory Ordered By: Dr. Leandra Fernandez Referrals / Follow Up: Care Physician,No Primary [Non-Staff] - Disposition Disposition (needs filled in before D/C Order can be placed): Home, Self Care
[2024-02-24] MEDS: Vasopressin 20 UNITS/ML Vial (10:19)
[2024-02-24] MEDS: Bupivacaine 0.25% 30 ML Vial (11:12)
[2024-02-24 13:13] LABS: Bedside Glucose 138 mg/dL (74-106)
[2024-02-24 13:25] LABS: Hematocrit 35.5 % (37-47); Hemoglobin 11.8 g/dL (12.0-15.0); Mean Corp Hgb Conc 33.2 g/dL (32-36); Mean Corpuscular Hgb 28.2 pg (27.0-32.0); Mean Corpuscular Volume 84.7 fL (81-99); Mean Platelet Vol. 9.9 fl (6.2-12.0); Platelet Count 193 K/mm3 (150-450); RBC Distribution Width CV 12.9 % (11.6-14.6); RBC Distribution Width SD 39.7 fl (35.1-43.9); Red Blood Count 4.19 M/mm3 (4.2-5.4); White Blood Count 9.6 K/mm3 (4.4-11.0)
[2024-02-24] MEDS: Ketorolac 30 MG/ML Syringe IV (13:32)
[2024-02-24] MEDS: oxyCODONE 5 MG Tablet PO (16:07)
== END 2024-02-24 17:42 | disposition home or self-care (01) ==
LOC: SDC 06:00 → AC 06:02
PROVIDERS: Anesthesiology; PCP Physician Assistant; Referring Provider Physician Assistant; Visit Provider Obstetrics & Gynecology
PROC: 0UT9FZZ Resection of Uterus, Via Natural or Artificial Opening With Percutaneous Endoscopic Assistance (ICD-10-PCS; CPT 58552; principal; 2024-02-24 07:50)
DX: N80.03 Adenomyosis of the uterus (principal); E11.9 Type 2 diabetes mellitus without complications; N72 Inflammatory disease of cervix uteri; D25.9 Leiomyoma of uterus, unspecified; N88.2 Stricture and stenosis of cervix uteri; G43.009 Migraine without aura, not intractable, without status migrainosus; J45.909 Unspecified asthma, uncomplicated; I10 Essential (primary) hypertension; Z90.710 Acquired absence of both cervix and uterus; Z79.899 Other long term (current) drug therapy
CPT/HCPCS: 58552; 00944; 81025; 82962; 85027; 88307; J7120; J2405; J3475

== ENCOUNTER → 2024-03-11 | Outpatient (CLI) | payer OTHER, SELFPAY ==
[2024-03-11 11:19] LABS: Absolute Lymphocyte Count 1.58 X10^3/uL (0.83-4.51); Absolute Neutrophil Count 7.9 X10^3/uL (2.0-7.7); Basophil# 0.11 X10^3/uL; Eosinophil# 0.89 X10^3/uL; Eosinophils% 7.8 % (0-5); Hematocrit 37.9 % (37-47); Hemoglobin 12.3 g/dL (12.0-15.0); Lymphocyte # 1.58 X10^3/ul (0.83-4.51); Lymphocyte % 13.8 % (19-41); Mean Corp Hgb Conc 32.5 g/dL (32-36); Mean Corpuscular Hgb 27.3 pg (27.0-32.0); Mean Corpuscular Volume 84.2 fL (81-99); Mean Platelet Vol. 9.3 fl (6.2-12.0); Monocyte# 0.77 X10^3/uL; Monocyte% 6.7 % (0-10); NRBC Flagged by Analyzer 0 % (0-5); Neutrophil # 7.88 X10^3/uL (2.7-7.7); Neutrophil % 69.1 % (47-70); Platelet Count 412 K/mm3 (150-450); RBC Distribution Width CV 13.1 % (11.6-14.6); RBC Distribution Width SD 40.1 fl (35.1-43.9); White Blood Count 11.4 K/mm3 (4.4-11.0)
[2024-03-11 11:35] LABS: ALB/GLOB Ratio 0.8 RATIO (0.9-2.4); AST(SGOT) 9 U/L (15-37); Alanine Aminotransfer ALT/SGPT 18 U/L (13-56); Albumin, Serum 3.5 g/dL (3.2-5.0); Alkaline Phosphatase 59 U/L (45-117); Anion Gap 4 (5-15); BUN 10 mg/dL (7-18); BUN/Creat Ratio 9.3 RATIO (10-20); Calcium,Total 9.1 mg/dL (8.5-10.1); Chloride 108 mmol/L (98-107); Creatinine, Serum 1.08 mg/dL (0.55-1.02); EST Glomerular Filtration Rate 59 mL/min (>60); Est Glom Filt Rate - Afr Amer 71 mL/min (>60); Globulin 4.2 g/dL (2.2-4.2); Glucose 128 mg/dL (74-106); Potassium 3.7 mmol/L (3.5-5.1); Protein, Total 7.7 g/dL (6.4-8.2); Sodium Level 139 mmol/L (136-145)
== END | disposition home or self-care (01) ==
PROVIDERS: PCP Physician Assistant; Referring Provider Obstetrics & Gynecology; Visit Provider Obstetrics & Gynecology
DX: R53.83 Other fatigue (principal); T50.B95A Adverse effect of other viral vaccines, initial encounter
CPT/HCPCS: 36415; 80053; 85025; 87086; 87088

== ENCOUNTER → 2024-03-22 | Outpatient (CLI) | payer OTHER, SELFPAY ==
[2024-03-22 11:18] LABS: Absolute Lymphocyte Count 1.43 X10^3/uL (0.83-4.51); Absolute Neutrophil Count 4.1 X10^3/uL (2.0-7.7); Basophil% 1.5 % (0-1); Eosinophil# 0.43 X10^3/uL; Eosinophils% 6.7 % (0-5); Hematocrit 40.9 % (37-47); Hemoglobin 13.3 g/dL (12.0-15.0); Lymphocyte # 1.43 X10^3/ul (0.83-4.51); Lymphocyte % 22.1 % (19-41); Mean Corp Hgb Conc 32.5 g/dL (32-36); Mean Corpuscular Hgb 27.5 pg (27.0-32.0); Mean Corpuscular Volume 84.5 fL (81-99); Mean Platelet Vol. 9.1 fl (6.2-12.0); Monocyte# 0.41 X10^3/uL; Monocyte% 6.3 % (0-10); NRBC Flagged by Analyzer 0 % (0-5); Neutrophil # 4.08 X10^3/uL (2.7-7.7); Neutrophil % 63.2 % (47-70); Platelet Count 297 K/mm3 (150-450); RBC Distribution Width CV 13.2 % (11.6-14.6); RBC Distribution Width SD 41.2 fl (35.1-43.9); Red Blood Count 4.84 M/mm3 (4.2-5.4); White Blood Count 6.5 K/mm3 (4.4-11.0)
[2024-03-22 11:29] LABS: Anion Gap 5 (5-15); BUN 13 mg/dL (7-18); BUN/Creat Ratio 11.9 RATIO (10-20); Calcium,Total 9.4 mg/dL (8.5-10.1); Chloride 109 mmol/L (98-107); Creatinine, Serum 1.09 mg/dL (0.55-1.02); EST Glomerular Filtration Rate 58 mL/min (>60); Est Glom Filt Rate - Afr Amer 70 mL/min (>60); Glucose 130 mg/dL (74-106); Potassium 3.6 mmol/L (3.5-5.1); Sodium Level 140 mmol/L (136-145)
== END | disposition home or self-care (01) ==
LOC: PAVLAB 11:06
PROVIDERS: PCP Physician Assistant; Referring Provider Obstetrics & Gynecology; Visit Provider Obstetrics & Gynecology
DX: N39.0 Urinary tract infection, site not specified (principal)
CPT/HCPCS: 36415; 80048; 85025

== ENCOUNTER → 2024-04-06 | Outpatient (CLI) | payer OTHER, SELFPAY ==
[2024-04-06 15:52] LABS: AST(SGOT) 19 U/L (15-37); Alanine Aminotransfer ALT/SGPT 33 U/L (13-56); Albumin, Serum 3.9 g/dL (3.2-5.0); Alkaline Phosphatase 64 U/L (45-117); Anion Gap 5 (5-15); BUN 10 mg/dL (7-18); BUN/Creat Ratio 9.9 RATIO (10-20); Calcium,Total 9.5 mg/dL (8.5-10.1); Chloride 108 mmol/L (98-107); Creatinine, Serum 1.01 mg/dL (0.55-1.02); EST Glomerular Filtration Rate 63 mL/min (>60); Est Glom Filt Rate - Afr Amer 76 mL/min (>60); Glucose 94 mg/dL (74-106); Potassium 3.9 mmol/L (3.5-5.1); Protein, Total 7.9 g/dL (6.4-8.2); Sodium Level 139 mmol/L (136-145)
== END | disposition home or self-care (01) ==
PROVIDERS: PCP Physician Assistant; Referring Provider Nurse Practitioner Women's Health; Visit Provider Nurse Practitioner Women's Health
DX: N39.0 Urinary tract infection, site not specified (principal)
CPT/HCPCS: 36415; 80053; 87086; 87088